=== PATIENT | female | born 2000 | race Caucasian/White ===

== ENCOUNTER 2024-06-21 09:56 | Emergency (ER) | payer MEDICAID ==
[~2024-06-21] VITALS: Ht 160 cm; Wt 73.0 kg
[2024-06-21 10:03] VITALS: TEMP 98.3; O2SAT 100
[2024-06-21 10:41] LABS: BASOPHILS % 0.4 % (0.0-2.0); EOSINOPHILS % 5.2 % (0.0-5.0); HEMATOCRIT. 39.3 % (36.0-48.0); HEMOGLOBIN. 13.3 g/dL (12.0-16.0); LYMPHOCYTES % 30.3 % (20.0-50.0); MEAN CORPUSCULAR HEMOGLOBIN 29.3 pg (28.0-32.0); MEAN CORPUSCULAR HGB CONC 33.8 g/dL (31.0-37.0); MEAN CORPUSCULAR VOLUME 86.6 fL (81.0-99.0); MEAN PLATELET VOLUME 9.6 fl (7.4-10.4); MONOCYTES % 5.4 % (2.0-8.0); NEUTROPHILS % 58.7 % (40.0-76.0); PLATELET 279 x1000/uL (130-400); RED BLOOD CELL COUNT 4.53 mill/uL (4.2-5.4); RED CELL DISTRIBUTION WIDTH 13.4 % (11.6-14.6); WHITE BLOOD COUNT 8.3 x1000/uL (4.5-11.0)
[2024-06-21 10:47] LABS: CHLORIDE 105 mEq/L (98-107); POTASSIUM 3.6 mEq/L (3.5-5.1); SODIUM 138 mEq/L (136-145)
[2024-06-21 10:48] LABS: CARBON DIOXIDE 23 mEq/L (21-32)
[2024-06-21 10:49] LABS: CALCIUM 9.3 mg/dL (8.7-10.4)
[2024-06-21 10:53] LABS: CREATININE 0.5 mg/dL (0.6-1.0); GLUCOSE 141 mg/dL (70-105)
[2024-06-21 10:54] LABS: UREA NITROGEN BLOOD 6 mg/dL (9-23)
[2024-06-21 11:21] LABS: HCG SCREEN NEGATIVE
[2024-06-21] MEDS ORDERED: TOPUD PO (12:07)
[2024-06-21 13:33] VITALS: BP 124/74; PULSE 86; RESP 13
== END 2024-06-21 13:42 | disposition home or self-care (01) ==
LOC: ER 10:22
DX: M54.6 Pain in thoracic spine (principal); J45.909 Unspecified asthma, uncomplicated; E11.9 Type 2 diabetes mellitus without complications
CPT/HCPCS: 80048; 84703; 85025; 36415; 71045; 70450; 72125; 74176; 99284; Z7610 ×3